=== PATIENT | male | born 1960 | race Caucasian/White ===

== ENCOUNTER 2017-01-29 09:56 | Emergency (ER) | payer BC ==
--- NOTE | 2017-01-29 10:51 | EDM.PDOC ---
ED HPI GENERAL MEDICAL PROBLEM - General Chief Complaint: Back Pain or Injury Stated Complaint: HURT BACK Time Seen by Provider: 01/29/17 10:40 Source of Information: Reports: Patient History Limitations: Reports: No Limitations - History of Present Illness INITIAL COMMENTS - FREE TEXT/NARRATIVE: This 56 yo male patient reports to the ED with increased lower back pain. The patient reports he has a history of lower back pain and was painting last weekend. The patient reports he has noticed increased pain in the lower back throughout the week. The patient has been seen by his Chiropractor on Tuesday, Tuesday and with some symptom relief. The patient report increased pain yesterday that has continued through today. The patient reports he has taken ibuprofen and Aleve today with little to no symptom relief. 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 - Related Data Allergies Allergy/AdvReac Type Severity Reaction Status Date / Time No Known Allergies Allergy Verified 07/01/15 19:00 Home Meds: Home Meds Aspirin [Ecotrin] 81 mg PO DAILY 07/01/15 [History] Metoprolol Succinate [Metoprolol Succinate] 25 mg PO DAILY 07/01/15 [History] Allopurinol [Zyloprim] 100 mg PO DAILY 01/29/17 [History] Past Medical History Cardiovascular History: Reports: Hypertension Social & Family History - Tobacco Use Smoking Status *Q: Never Smoker Second Hand Smoke Exposure: No - Recreational Drug Use Recreational Drug Use: No ED ROS GENERAL - Review of Systems Review Of Systems: ROS reveals no pertinent complaints other than HPI. ED EXAM,LOWER BACK PAIN/INJURY - Physical Exam Exam: See Below Exam Limited By: No Limitations General Appearance: Alert, WD/WN, Moderate Distress Eye Exam: Bilateral Eye: EOMI, Normal Inspection, PERRL Ears: Normal External Exam, Normal Canal, Hearing Grossly Normal, Normal TMs Nose: Normal Inspection, Normal Mucosa, No Blood Throat/Mouth: Normal Inspection, Normal Lips, Normal Teeth, Normal Gums, Normal Oropharynx, Normal Voice, No Airway Compromise Head: Atraumatic, Normocephalic Neck: Normal Inspection, Supple, Non-Tender, Full Range of Motion Respiratory/Chest: No Respiratory Distress, Lungs Clear, Normal Breath Sounds, No Accessory Muscle Use, Chest Non-Tender Cardiovascular: Normal Peripheral Pulses, Regular Rate, Rhythm, No Edema, No Gallop, No JVD, No Murmur, No Rub GI/Abdominal: Normal Bowel Sounds, Soft, Non-Tender, No Organomegaly, No Distention, No Abnormal Bruit, No Mass (Male) Exam: Deferred Rectal (Males) Exam: Deferred Back Exam: Paraspinal Tenderness (left lower back) Extremities: Normal Inspection, Normal Range of Motion, Non-Tender, No Pedal Edema, Normal Capillary Refill Neurological: Alert, Normal Mood/Affect, Normal Dorsiflexion, CN II-XII Intact, Normal Plantar Flexion, Normal Gait, Normal Reflexes, No Motor/Sensory Deficits , Oriented x 3 Psychiatric: Normal Affect, Normal Mood Skin Exam: Warm, Dry, Intact, Normal Color, No Rash Lymphatic: No Adenopathy Departure - Departure Time of Disposition: 10:49 Disposition: Home, Self-Care 01 Condition: Fair Clinical Impression: Low back strain Qualifiers: Encounter type: initial encounter Qualified Code(s): S39.012A - Strain of muscle, fascia and tendon of lower back, initial encounter - Discharge Information Instructions: Back Injury Prevention, [id number], Muscle Strain, [id number] Forms: ED Department Discharge Care Plan Goals: The patient was advised of the examination results during the visit. The patient was discharged with a script for Flexeril (10 mg) #20 to take 1 by mouth at bedtime and [place] (10/325) #6 to take 1 by mouth every 6 hours as needed. If the patient has any additional symptoms or concerns, the patient should follow-up with his primary care facility or return to the emergency department.
[2017-01-29 11:54] VITALS: BP 128/71
== END 2017-01-29 10:57 | disposition home or self-care (01) ==
LOC: DL.ED 09:56
DX: S39.012A Strain of muscle, fascia and tendon of lower back, initial encounter (principal); I10 Essential (primary) hypertension; X58.XXXA Exposure to other specified factors, initial encounter
CPT/HCPCS: 99283

== ENCOUNTER 2017-02-04 22:11 | Emergency (ER) | payer BC ==
[2017-02-04] MEDS ORDERED: Ketorolac 30 MG/ML SDV IM ONE (22:47)
--- NOTE | 2017-02-04 22:52 | EDM.PDOC ---
ED HPI GENERAL MEDICAL PROBLEM - General Chief Complaint: Back Pain or Injury Stated Complaint: SEVER BACK PAIN [phone] Time Seen by Provider: 02/04/17 22:48 Source of Information: Reports: Patient History Limitations: Reports: No Limitations - History of Present Illness INITIAL COMMENTS - FREE TEXT/NARRATIVE: states problem began 2 weeks ago from painting, usually goes to [place] but this time not helping much. was seen here few days ago and given Rx which only help temporarily tonight pain gotten more intense. denies sciatica but there is a spasm by his buttocks region. 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: Flexaril Left Lower Back Pain Score (Numeric/FACES): 9 - Related Data Allergies Allergy/AdvReac Type Severity Reaction Status Date / Time No Known Allergies Allergy Verified 02/04/17 22:25 Home Meds: Home Meds Aspirin [Ecotrin] 81 mg PO DAILY 07/01/15 [History] Metoprolol Succinate [Metoprolol Succinate] 25 mg PO DAILY 07/01/15 [History] Allopurinol [Zyloprim] 100 mg PO DAILY 01/29/17 [History] Cyclobenzaprine [Flexeril] 10 mg PO DAILY 02/04/17 [History] Hydrocodone/Acetaminophen [Hydrocodon-Acetaminophn 10-325] 10 - 325 mg PO QID PRN 02/04/17 [History] Past Medical History HEENT History: Reports: Impaired Vision Cardiovascular History: Reports: Hypertension - Past Surgical History Musculoskeletal Surgical History: Reports: Arthroscopic Knee Social & Family History - Tobacco Use Smoking Status *Q: Never Smoker Second Hand Smoke Exposure: No - Caffeine Use Caffeine Use: Reports: Coffee - Recreational Drug Use Recreational Drug Use: No ED ROS GENERAL - Review of Systems Review Of Systems: ROS reveals no pertinent complaints other than HPI. ED EXAM,LOWER BACK PAIN/INJURY - Physical Exam Exam: See Below Exam Limited By: No Limitations General Appearance: Alert, WD/WN, Mild Distress, Moderate Distress, Other (LBP) Ears: Hearing Grossly Normal Throat/Mouth: Normal Voice, No Airway Compromise Head: Atraumatic Neck: Non-Tender, Full Range of Motion Respiratory/Chest: No Respiratory Distress Cardiovascular: Regular Rate, Rhythm GI/Abdominal: Soft, Non-Tender Back Exam: Muscle Spasm, Paraspinal Tenderness, Other (left LS> ) Neurological: Alert, No Motor/Sensory Deficits, Oriented x 3, Other (gait limited to pain) Psychiatric: Flat Affect Skin Exam: Warm, Dry, Normal Color Lymphatic: No Adenopathy Course - Vital Signs Last Recorded V/S: Last Vital Signs Temp 36.2 C 02/05/17 00:18 Pulse 60 02/05/17 00:18 Resp 18 02/05/17 00:18 BP 142/83 H 02/05/17 00:18 Pulse Ox 98 02/05/17 00:18 - Orders/Labs/Meds Meds: Medications Discontinued Medications Generic Name Dose Route Start Last Admin Trade Name Kiran PRN Reason Stop Dose Admin Butorphanol Tartrate 2 mg 02/05/17 00:06 02/05/17 00:17 Stadol IM 02/05/17 00:07 2 mg ONETIME ONE Administration Ketorolac Tromethamine 30 mg 02/04/17 22:47 02/04/17 23:10 Toradol IM 02/04/17 22:48 30 mg ONETIME ONE Administration Promethazine HCl 25 mg 02/05/17 00:06 02/05/17 00:13 Phenergan IM 02/05/17 00:07 25 mg ONETIME ONE Administration - Re-Assessments/Exams Free Text/Narrative Re-Assessment/Exam: 02/05/17 00:07 re-exam; s/p IM toradol = better somewhat. able to stand better at least but still feels sharp spasms on-off. 02/05/17 00:34 s/p IM stadol + phenergan = much better, able to ambulate well. Departure - Departure Time of Disposition: 00:25 Disposition: Home, Self-Care 01 Condition: Good Clinical Impression: Lumbar paraspinal muscle spasm - Discharge Information Instructions: Muscle Strain, [id number] Referrals: PCP,Not In Area [Primary Care Provider] - Forms: ED Department Discharge Additional Instructions: 1) rest as much as possible 2) try ice or heat to sore areas 3) avoid bending lifting straining 4) follow up at clinic for MRI SCAN 5) recheck if there is any change or concern
[2017-02-05] MEDS ORDERED: Promethazine 25 MG/ML SDV IM ONE (00:06)
[2017-02-05] MEDS ORDERED: Butorphanol 2 MG/ML SDV IM ONE (00:06)
[2017-02-05 00:19] VITALS: BP 142/83
== END 2017-02-05 00:25 | disposition home or self-care (01) ==
LOC: DL.ED 22:11
DX: M62.830 Muscle spasm of back (principal); I10 Essential (primary) hypertension; Z79.82 Long term (current) use of aspirin; Z79.899 Other long term (current) drug therapy
CPT/HCPCS: 96372; 99283; J0595; J1885; J2550

== ENCOUNTER 2017-07-25 10:24 | Emergency (ER) | payer BC ==
[2017-07-25] MEDS ORDERED: Sodium Chloride 0.9% 10 ML Syringe FLUSH PRN (10:27)
[2017-07-25 10:40] VITALS: BP 133/71
--- NOTE | 2017-07-25 10:45 | EDM.PDOC ---
ED HPI GENERAL MEDICAL PROBLEM - General Chief Complaint: Chest Pain Stated Complaint: CHEST PAIN [phone] Time Seen by Provider: 07/25/17 10:35 Source of Information: Reports: Patient, Family, RN, RN Notes Reviewed History Limitations: Reports: No Limitations - History of Present Illness INITIAL COMMENTS - FREE TEXT/NARRATIVE: Pt presents to the ER with c/o left sided chest pain with pain in the left shoulder and left side of the neck. Patient states the pain has been present for about 4 days. He states he was working outside this weekend at the [employer] but does not recall any specific injury. Patient denies fever, chills, N/V/D. He states he has had some SOB, but he feels this is more weight related. Onset: Gradual Onset Date: 07/21/17 Duration: Intermittent Location: Reports: Neck, Chest Quality: Reports: Ache, Dull, Pressure Severity: Mild Improves with: Reports: None - Related Data Allergies Allergy/AdvReac Type Severity Reaction Status Date / Time No Known Allergies Allergy Verified 02/04/17 22:25 Home Meds: Home Meds Aspirin [Ecotrin] 81 mg PO DAILY 07/01/15 [History] Metoprolol Succinate 25 mg PO DAILY 07/01/15 [History] Allopurinol [Zyloprim] 100 mg PO DAILY 01/29/17 [History] Meloxicam 15 mg PO DAILY 07/25/17 [History] Past Medical History HEENT History: Reports: Impaired Vision Cardiovascular History: Reports: Hypertension - Past Surgical History Musculoskeletal Surgical History: Reports: Arthroscopic Knee Social & Family History - Caffeine Use Caffeine Use: Reports: Coffee ED ROS GENERAL - Review of Systems Review Of Systems: ROS reveals no pertinent complaints other than HPI. ED EXAM, GENERAL - Physical Exam Exam: See Below Exam Limited By: No Limitations General Appearance: Alert, WD/WN, No Apparent Distress Eye Exam: Bilateral Eye: EOMI, Normal Inspection Ears: Normal External Exam, Hearing Grossly Normal Nose: Normal Inspection Throat/Mouth: Normal Inspection, Normal Voice, No Airway Compromise Head: Atraumatic, Normocephalic Neck: Normal Inspection, Limited Range of Motion, Tender Lateral (left) Respiratory/Chest: No Respiratory Distress, Lungs Clear, Normal Breath Sounds, No Accessory Muscle Use, Chest Non-Tender Cardiovascular: Normal Peripheral Pulses, Regular Rate, Rhythm, No Edema, No Gallop, No JVD, No Murmur, No Rub Peripheral Pulses: 2+: Radial (L), Radial (R) GI/Abdominal: Normal Bowel Sounds, Soft, Non-Tender, No Organomegaly, No Distention, No Abnormal Bruit, No Mass (Male) Exam: Deferred Rectal (Males) Exam: Deferred Back Exam: Normal Inspection, Full Range of Motion, NT Extremities: Normal Inspection, Normal Range of Motion, Non-Tender, Normal Capillary Refill, No Pedal Edema Neurological: Alert, Oriented, CN II-XII Intact, Normal Cognition, Normal Gait, Normal Reflexes, No Motor/Sensory Deficits Psychiatric: Normal Affect, Normal Mood Skin Exam: Warm, Dry, Intact, Normal Color, No Rash Lymphatic: No Adenopathy EKG INTERPRETATION EKG Date: 07/25/17 Time: 10:27 Rhythm: Other (sinus bradycardia) Rate (Beats/Min): 57 [place]: Normal P-Wave: Present QRS: Normal ST-T: Normal QT: Normal Comparison: NA - No Prior EKG Course - Vital Signs Last Recorded V/S: Last Vital Signs Temp 98.2 F 07/25/17 10:38 Pulse 60 07/25/17 10:38 Resp 20 07/25/17 10:38 BP 133/71 07/25/17 10:38 Pulse Ox 99 07/25/17 10:38 - Orders/Labs/Meds Orders: Active Orders 24 hr Category Date Time Status EKG Documentation Completion [RC] STAT Care 07/25/17 10:27 Active Peripheral IV Care [RC] . DIRECTED Care 07/25/17 10:27 Active Peripheral IV Insertion Adult [OM.PC] Stat Oth 07/25/17 10:27 Ordered Labs: Laboratory Tests 07/25/17 07/25/17 Range/Units 10:39 10:39 WBC 7.2 (5.0-10.0) 10^3/uL RBC 4.92 (4.6-6.2) 10^6/uL Hgb 15.2 (14.0-18.0) g/dL Hct 44.6 (40.0-54.0) % MCV 90.7 (80-100) fL MCH 30.9 (27.0-34.0) pg MCHC 34.1 (33.0-35.0) g/dL Plt Count 197 (150-450) 10^3/uL Neut % (Auto) 60.3 (42.2-75.2) % Lymph % (Auto) 30.5 (20.5-50.1) % [place] % (Auto) 6.7 (2-8) % Eos % (Auto) 2.1 (1.0-3.0) % Baso % (Auto) 0.4 (0.0-1.0) % Sodium 134 L (135-145) mmol/L Potassium 3.7 (3.6-5.0) mmol/L Chloride 104 (101-111) mmol/L Carbon Dioxide 24.0 (21.0-31.0) mmol/L Anion Gap 9.7 BUN 14 (7-18) mg/dL Creatinine 0.9 (0.6-1.3) mg/dL Est Cr Clr Drug Dosing 95.76 mL/min Estimated GFR (MDRD) > 60 BUN/Creatinine Ratio 15.55 Glucose 105 (74-105) mg/dL Calcium 8.9 (8.4-10.2) mg/dl Total Bilirubin 1.1 H (0.2-1.0) mg/dL AST 25 (10-42) IU/L ALT 23 (10-60) IU/L Alkaline Phosphatase 61 (42-121) IU/L Troponin I < 0.02 (0.00-0.02) ng/ml Total Protein 6.8 (6.7-8.2) g/dl Albumin 4.3 (3.2-5.5) g/dl Globulin 2.5 Albumin/Globulin Ratio 1.72 Meds: Medications Discontinued Medications Generic Name Dose Route Start Last Admin Trade Name Freq PRN Reason Stop Dose Admin Sodium Chloride 10 ml 07/25/17 10:27 07/25/17 10:44 Saline Flush FLUSH 10 ml ASDIRECTED PRN Administration Keep Vein Open - Radiology Interpretation Free Text/Narrative:: Chest xray: No acute findings See rad report Departure - Departure Time of Disposition: 11:42 Disposition: Home, Self-Care 01 Condition: Fair Clinical Impression: Muscle strain, Nonspecific chest pain Instructions: Chest Wall Pain, [id number], Nonspecific Chest Pain, Easy-to- Read Forms: ED Department Discharge Additional Instructions: RX Norflex, Diclofenac Consider massage therapy Ice, heat, rest as tolerated Follow up with your primary care facility if no improvement - My Orders Last 24 Hours: My Active Orders 07/25/17 10:27 EKG Documentation Completion [RC] STAT Peripheral IV Care [RC] . DIRECTED Peripheral IV Insertion Adult [OM.PC] Stat - Assessment/Plan Last 24 Hours: My Active Orders 07/25/17 10:27 EKG Documentation Completion [RC] STAT Peripheral IV Care [RC] . DIRECTED Peripheral IV Insertion Adult [OM.PC] Stat
--- NOTE | 2017-07-25 11:24 | CR ---
CLINICAL HISTORY: 56-year-old male with chest pain. INTERPRETATION: Upright AP portable chest film confirms reasonable inspiratory effort and normal card iac silhouette this obese patient. No cephalization of vascular flow, signs of alveolar edema or depe ndent pleural fluid accumulation. No lung mass, hilar lymphadenopathy or focal lobar pneumonia. No atelectasis/collapse. No pneumothorax. CONCLUSION: No acute pulmonary pulmonary abnormality.
[2017-07-25 11:27] LABS: CHLORIDE,CL 104 mmol/L (101-111); SODIUM,NA 134 mmol/L (135-145)
--- NOTE | 2017-07-27 07:25 | EKG ---
07/25/2017- LISSA ROSARIO - FINDINGS: A 12-lead EKG shows sinus bradycardia with heart rate of 57, NC interval of 192. No significant ST elevation or ST depression noted on this 12- lead EKG except for nonspecific ST-T wave changes on leads V2 and V3. [facility] /[id number]
== END 2017-07-25 11:58 | disposition home or self-care (01) ==
LOC: DL.ED 10:24
DX: S16.1XXA Strain of muscle, fascia and tendon at neck level, initial encounter (principal); R07.89 Other chest pain; I10 Essential (primary) hypertension; X58.XXXA Exposure to other specified factors, initial encounter; Y92.828 Other wilderness area as the place of occurrence of the external cause; Z79.82 Long term (current) use of aspirin
CPT/HCPCS: 36415; 71045; 80053; 84484; 85025; 93005; 99285; J7050

== ENCOUNTER 2018-08-20 08:28 | Emergency (ER) | payer BC ==
--- NOTE | 2018-08-20 08:38 | EDM.PDOC ---
ED HPI GENERAL MEDICAL PROBLEM - General Chief Complaint: Respiratory Problem Stated Complaint: BAD COUGH, HARD TIME BREATHING Time Seen by Provider: 08/20/18 08:37 Source of Information: Reports: Patient, Old Records, RN, RN Notes Reviewed History Limitations: Reports: No Limitations - History of Present Illness INITIAL COMMENTS - FREE TEXT/NARRATIVE: Pt presents to ER from home by POV with c/o one weeks duration of cough with occasional green sputum production, nasal drainage, congestions, sore throat, fevers, body aches, and posttussive vomiting. Pt states he has been trying to drink extra fluids, but only urinated once yesterday. He admits to mild shortness of breath, and headache, especially with coughing. Pt denies nausea, abdominal pain, wheezing, hemoptysis, or edema. Pt states he had been [place], and began to get sick towards the end of that trip. Onset: Gradual Duration: Week(s): (1) Location: Reports: Generalized Quality: Reports: Ache Severity: Moderate Improves with: Reports: None Worsens with: Reports: None Associated Symptoms: Reports: No Other Symptoms - Related Data Allergies Allergy/AdvReac Type Severity Reaction Status Date / Time No Known Allergies Allergy Verified 08/20/18 08:42 Home Meds: Home Meds Aspirin [Ecotrin] 81 mg PO DAILY 07/01/15 [History] Metoprolol Succinate 25 mg PO DAILY 07/01/15 [History] Allopurinol [Zyloprim] 100 mg PO DAILY 01/29/17 [History] Meloxicam 15 mg PO DAILY 07/25/17 [History] Past Medical History HEENT History: Reports: Impaired Vision Cardiovascular History: Reports: Hypertension Endocrine/Metabolic History: Reports: Obesity/BMI 30+ - Past Surgical History Musculoskeletal Surgical History: Reports: Arthroscopic Knee Social & Family History - Family History Family Medical History: Noncontributory - Caffeine Use Caffeine Use: Reports: Coffee - Living Situation & Occupation Living situation: Reports: , with Spouse Occupation: Employed ED ROS GENERAL - Review of Systems Review Of Systems: ROS reveals no pertinent complaints other than HPI. ED EXAM, GENERAL - Physical Exam Exam: See Below Exam Limited By: No Limitations General Appearance: Alert, WD/WN, No Apparent Distress, Obese Eye Exam: Bilateral Eye: Normal Inspection Ears: Normal External Exam, Normal Canal, Hearing Grossly Normal, Normal TMs Nose: No Blood, Nasal Drainage (yellowish-green) Throat/Mouth: Normal Lips, Normal Teeth, Normal Gums, Normal Voice, No Airway Compromise, Other (Oropharynx with streaks of erythema and postnasal drainage) Head: Atraumatic, Normocephalic Neck: Normal Inspection, Supple, Non-Tender, Full Range of Motion. No: Lymphadenopathy (L), Lymphadenopathy (R) Respiratory/Chest: No Respiratory Distress, Lungs Clear, No Accessory Muscle Use , Chest Non-Tender, Other (Occasional harsh cough). No: Crackles, Rales, Rhonchi, Wheezing, Stridor Cardiovascular: Regular Rate, Rhythm Back Exam: Normal Inspection Extremities: Normal Inspection. No: Martha's Sign Neurological: Alert, Oriented, CN II-XII Intact, Normal Cognition, Normal Gait, No Motor/Sensory Deficits Psychiatric: Normal Affect, Normal Mood Skin Exam: Warm, Dry, Intact, Normal Color, No Rash Course - Vital Signs Last Recorded V/S: Last Vital Signs Temp 97.3 F 08/20/18 08:42 Pulse 71 08/20/18 08:42 Resp 16 08/20/18 08:42 BP 123/79 08/20/18 08:42 Pulse Ox 97 08/20/18 08:42 - Orders/Labs/Meds Orders: Active Orders 24 hr Category Date Time Status Peripheral IV Care [RC] . DIRECTED Care 08/20/18 08:44 Active Chest 2V [CR] Stat Exams 08/20/18 08:43 Taken CULTURE BLOOD [BC] Stat Lab 08/20/18 09:02 Received CULTURE BLOOD [BC] Stat Lab 08/20/18 09:06 Received CULTURE STREP A CONFIRMATION [RM] Stat Lab 08/20/18 09:04 Results STREP SCRN A RAPID W CULT CONF [RM] Stat Lab 08/20/18 09:04 Results Sodium Chloride 0.9% [Saline Flush] Med 08/20/18 08:43 Active 10 ml FLUSH ASDIRECTED PRN Blood Culture x2 Reflex Set [OM.PC] Stat Oth 08/20/18 08:42 Ordered Peripheral IV Insertion Adult [OM.PC] Stat Oth 08/20/18 08:42 Ordered Medication Orders Sodium Chloride (Saline Flush) 10 ml FLUSH ASDIRECTED PRN PRN Reason: Keep Vein Open Last Admin: 08/20/18 09:04 Dose: 10 ml Labs: Laboratory Tests 08/20/18 08/20/18 08/20/18 Range/Units 09:02 09:02 09:02 WBC 10.8 H (5.0-10.0) 10^3/uL RBC 4.56 L (4.6-6.2) 10^6/uL Hgb 14.0 (14.0-18.0) g/dL Hct 42.1 (40.0-54.0) % MCV 92.3 (80-100) fL MCH 30.7 (27.0-34.0) pg MCHC 33.3 (33.0-35.0) g/dL Plt Count 238 (150-450) 10^3/uL Neut % (Auto) 74.7 (42.2-75.2) % Lymph % (Auto) 15.6 L (20.5-50.1) % [place] % (Auto) 7.6 (2-8) % Eos % (Auto) 1.8 (1.0-3.0) % Baso % (Auto) 0.3 (0.0-1.0) % Sodium 137 (135-145) mmol/L Potassium 3.7 (3.6-5.0) mmol/L Chloride 105 (101-111) mmol/L Carbon Dioxide 22.0 (21.0-31.0) mmol/L Anion Gap 13.7 BUN 16 (7-18) mg/dL Creatinine 1.0 (0.6-1.3) mg/dL Est Cr Clr Drug Dosing TNP Estimated GFR (MDRD) > 60 BUN/Creatinine Ratio 16.00 Glucose 118 H (74-105) mg/dL Lactic Acid 1.2 (0.5-2.2) mmol/L Calcium 8.7 (8.4-10.2) mg/dl Total Bilirubin 1.0 (0.2-1.0) mg/dL AST 22 (10-42) IU/L ALT 28 (10-60) IU/L Alkaline Phosphatase 77 (42-121) IU/L Total Protein 7.1 (6.7-8.2) g/dl Albumin 4.0 (3.2-5.5) g/dl Globulin 3.1 Albumin/Globulin Ratio 1.29 Rapid Strep, Influenza A/B: negative Meds: Medications Generic Name Dose Route Start Last Admin Trade Name Kiran PRN Reason Stop Dose Admin Sodium Chloride 10 ml 08/20/18 08:43 08/20/18 09:04 Saline Flush FLUSH 10 ml ASDIRECTED PRN Administration Keep Vein Open Discontinued Medications Generic Name Dose Route Start Last Admin Trade Name Kiran PRN Reason Stop Dose Admin Sodium Chloride 1,000 mls @ 999 mls/hr 08/20/18 08:44 08/20/18 09:04 Normal Saline IV 08/20/18 09:44 999 mls/hr .BOLUS ONE Administration Ketorolac Tromethamine 30 mg 08/20/18 08:44 08/20/18 09:04 Toradol IVPUSH 08/20/18 08:45 30 mg ONETIME ONE Administration Promethazine HCl/Codeine 10 ml 08/20/18 08:44 08/20/18 09:04 Phenergan With Codeine PO 08/20/18 08:45 10 ml ONETIME ONE Administration - Radiology Interpretation Free Text/Narrative:: Chest XR: no focal consolidations, see Rad. report. Departure - Departure Time of Disposition: 09:48 Disposition: Home, Self-Care 01 Condition: Good Clinical Impression: Viral URI with cough, Acute viral bronchitis - Discharge Information *PRESCRIPTION DRUG MONITORING PROGRAM REVIEWED*: No *COPY OF PRESCRIPTION DRUG MONITORING REPORT IN PATIENT GUEVARA: No Instructions: Viral Respiratory Infection, Squm-Nx-Memb, Acute Bronchitis, Adult, Hyoi-bj-Lmif Forms: ED Department Discharge Additional Instructions: Rx: Promethazine Codeine Syrup *Do not drive while under the influence of this medication. Rx: Prednisone 20mg Frequent saltwater gargles until improved. Use over the counter Coricidin HBP as needed for congestion. Drink plenty of water. Follow up in clinic if not improving in 5 to 7 days. Return to ER if worse at any time. - My Orders Last 24 Hours: My Active Orders 08/20/18 08:42 Blood Culture x2 Reflex Set [OM.PC] Stat Peripheral IV Insertion Adult [OM.PC] Stat 08/20/18 08:43 Chest 2V [CR] Stat Sodium Chloride 0.9% [Saline Flush] 10 ml FLUSH ASDIRECTED PRN 08/20/18 08:44 Peripheral IV Care [RC] . DIRECTED 08/20/18 09:02 CULTURE BLOOD [BC] Stat 08/20/18 09:04 CULTURE STREP A CONFIRMATION [RM] Stat STREP SCRN A RAPID W CULT CONF [] Stat 08/20/18 09:06 CULTURE BLOOD [BC] Stat - Assessment/Plan Last 24 Hours: My Active Orders 08/20/18 08:42 Blood Culture x2 Reflex Set [OM.PC] Stat Peripheral IV Insertion Adult [OM.PC] Stat 08/20/18 08:43 Chest 2V [CR] Stat Sodium Chloride 0.9% [Saline Flush] 10 ml FLUSH ASDIRECTED PRN 08/20/18 08:44 Peripheral IV Care [RC] . DIRECTED 08/20/18 09:02 CULTURE BLOOD [BC] Stat 08/20/18 09:04 CULTURE STREP A CONFIRMATION [RM] Stat STREP SCRN A RAPID W CULT CONF [] Stat 08/20/18 09:06 CULTURE BLOOD [BC] Stat
[2018-08-20] MEDS ORDERED: Sodium Chloride 0.9% 10 ML Syringe FLUSH PRN (08:43)
[2018-08-20] MEDS ORDERED: Codeine/Promethazine 10-6.25 MG/5 ML Syrup 5 ML UD Cup PO ONE (08:44)
[2018-08-20] MEDS ORDERED: Sodium Chloride 0.9% 1,000 ML IV ONE (08:44)
[2018-08-20] MEDS ORDERED: Ketorolac 30 MG/ML SDV IVPUSH ONE (08:44)
[2018-08-20 08:45] VITALS: BP 123/79
[2018-08-20 09:32] LABS: ANION GAP 13.7; CHLORIDE,CL 105 mmol/L (101-111); SODIUM,NA 137 mmol/L (135-145)
== END 2018-08-20 10:15 | disposition home or self-care (01) ==
LOC: DL.ED 08:28
DX: J20.8 Acute bronchitis due to other specified organisms (principal); I10 Essential (primary) hypertension; B97.89 Other viral agents as the cause of diseases classified elsewhere; Z79.82 Long term (current) use of aspirin; Z79.899 Other long term (current) drug therapy
CPT/HCPCS: 36415; 71046; 80053; 83605; 85025; 87040; 87081; 87430; 87804; 96361; 96374; 99283; A9270; J1885; J7030

== ENCOUNTER 2020-04-23 19:36 | Emergency (ER) | payer BC ==
[2020-04-23] MEDS ORDERED: Acyclovir 200 MG Cap PO ONE (20:13)
--- NOTE | 2020-04-23 20:46 | EDM.PDOC ---
ED HPI GENERAL MEDICAL PROBLEM - General Chief Complaint: Headache Stated Complaint: BROKE OUT IN THE MIDDLE OF FOREHEAD AND HEAD ACHE Time Seen by Provider: 04/23/20 19:58 Source of Information: Reports: Patient, RN, RN Notes Reviewed History Limitations: Reports: No Limitations - History of Present Illness INITIAL COMMENTS - FREE TEXT/NARRATIVE: Patient presents to the ED via personal vehicle with his for complaints of painful rash to his right forehead, orthodox, and periorbit. The patient states he first noticed painful burning in this area about four days ago. This morning he noticed redness to his forehead and orthodox and some lesions forming around his right lateral, superior orbit. He states he took Benadryl 25mg which offered him little to no relief of symptoms. The patient does report a history of Varicella in his childhood; he has not received a shingles vaccine. He does report receiving the first dose of the COVID vaccine six days ago. He denies f ever, shaking chills, pruritus, cough, sore throat, vision changes, or pain of the eye. Right Temporal Pain Score (Numeric/FACES): 4 - Related Data Allergies Allergy/AdvReac Type Severity Reaction Status Date / Time No Known Allergies Allergy Verified 04/23/20 20:04 Home Meds: Home Meds Aspirin [Ecotrin] 81 mg PO DAILY 07/01/15 [History] Metoprolol Succinate 25 mg PO DAILY 07/01/15 [History] Allopurinol [Zyloprim] 100 mg PO DAILY 01/29/17 [History] Meloxicam 15 mg PO DAILY 07/25/17 [History] Past Medical History HEENT History: Reports: Impaired Vision Cardiovascular History: Reports: High Cholesterol, Hypertension Musculoskeletal History: Reports: Arthritis Endocrine/Metabolic History: Reports: Obesity/BMI 30+ - Infectious Disease History Infectious Disease History: Reports: Chicken Pox - Past Surgical History Musculoskeletal Surgical History: Reports: Arthroscopic Knee Social & Family History - Family History Family Medical History: No Pertinent Family History - Tobacco Use Tobacco Use Status *Q: Never Tobacco User Second Hand Smoke Exposure: No - Caffeine Use Caffeine Use: Reports: Coffee - Alcohol Use Date of Last Drink: 04/23/20 - Recreational Drug Use Recreational Drug Use: No - Living Situation & Occupation Living situation: Reports: , with Spouse Occupation: Employed ED ROS ENT - Review of Systems Review Of Systems: Comprehensive ROS is negative, except as noted in HPI. ED EXAM, ENT - Physical Exam Exam: See Below Exam Limited By: No Limitations General Appearance: Alert, No Apparent Distress Eye Exam: Right Eye: Periorbital Changes (Swelling, erythema, and vesicular lesions to superior, lateral orbit), Bilateral Eye: EOMI, PERRL (3mm) Ears: Normal External Exam, Normal Canal, Hearing Grossly Normal, Normal TMs. No: Mastoid Swelling, Mastoid Tenderness Nose: Normal Inspection, Normal Mucousa, No Blood, Other (No lesions to nose) Mouth/Throat: Normal Inspection, Normal Oropharynx. No: Hoarse Voice, Muffled Voice, Pharyngeal Erythema, Tonsillar Erythema Head: Atraumatic, Normocephalic, Scalp Tenderness (To right frontal scalp), Facial Tenderness (To right forehead and right orthodox) Neck: Normal Inspection, Supple, Non-Tender, Full Range of Motion. No: Lymphadenopathy (L), Lymphadenopathy (R) Respiratory/Chest: No Respiratory Distress, Lungs Clear, Normal Breath Sounds, No Accessory Muscle Use, Chest Non-Tender Cardiovascular: Normal Peripheral Pulses, Regular Rate, Rhythm, No Edema, No Gallop, No JVD, No Murmur, No Rub Back: Normal Inspection, Full Range of Motion Extremities: Normal Range of Motion Neurological: Alert, Oriented, CN II-XII Intact, Normal Cognition, Normal Gait, Normal Reflexes, No Motor/Sensory Deficits Psychiatric: Normal Affect, Normal Mood Skin: Warm, Dry, Erythema (To right orthodox and right forehead), Zoster-Like Rash (To right superior/lateral orbit). No: Ecchymosis, Jaundice, Mottled, Pallor, Petechiae Course - Vital Signs Last Recorded V/S: Last Vital Signs Temp 96.5 F L 04/23/20 21:01 Pulse 70 04/23/20 21:01 Resp 18 04/23/20 21:01 BP 128/81 04/23/20 21:01 Pulse Ox 97 04/23/20 21:01 - Orders/Labs/Meds Orders: Active Orders 24 hr Category Date Time Status Orbit Sella PF IAC w Cont [CT] Urgent Exams 04/23/20 19:59 Stop Req Labs: Laboratory Tests 04/23/20 Range/Units 20:25 Sodium 139 (136-145) mmol/L Potassium 3.6 (3.5-5.1) mmol/L Chloride 102 (98-107) mmol/L Carbon Dioxide 25 (21-32) mmol/L Anion Gap 15.6 H (7-13) mEq/L BUN 18 (7-18) mg/dL Creatinine 0.91 (0.70-1.30) mg/dL Est Cr Clr Drug Dosing 94.24 mL/min Estimated GFR (MDRD) > 60 Glucose 128 H (74-99) mg/dL Calcium 8.7 (8.5-10.1) mg/dL Meds: Medications Discontinued Medications Generic Name Dose Route Start Last Admin Trade Name Freq PRN Reason Stop Dose Admin Acyclovir 800 mg 04/23/20 20:13 04/23/20 20:30 Zovirax PO 04/23/20 20:14 800 mg ONETIME ONE Administration - Re-Assessments/Exams Free Text/Narrative Re-Assessment/Exam: 04/23/20 Zoster-like rash noted to right forehead, lateral eye orbit, and right orthodox. Patient given Acyclovir 800mg as Valacyclovir not available in current formulary. [facility] originally ordered to access kidney function for CT with contrast. Case discussed with Dr. Borjas, soda fountain clerk at [facility] in [place], who states patient presentation does not warrant CT at this time. Should patient develop eye pain, vision changes, lesions that extend down the nose, or lesions that overtake the eyelid, plan for CT could change. Dr. Borjas states solo treatment with Acyclovir should be appropriate with no need for ophthalmology consult unless the aforementioned symptoms develop. Dr. Borjas states he is happy to see the patient should he want to be evaluated; he will place the patient "on his list" just in case. Discussed plan of care and option for ophthalmology referral should the patient wish or if red flag signs and symptoms develop. Patient and verbalized understanding and agreement with the plan of care. Departure - Departure Time of Disposition: 21:01 Disposition: Home, Self-Care 01 Condition: Good Clinical Impression: Zoster Qualifiers: Herpes zoster complications: without complications Qualified Code(s): B02.9 - Zoster without complications - Discharge Information *PRESCRIPTION DRUG MONITORING PROGRAM REVIEWED*: Not Applicable *COPY OF PRESCRIPTION DRUG MONITORING REPORT IN PATIENT GUEVARA: Not Applicable Instructions: Shingles, [id number] Forms: ED Department Discharge Additional Instructions: Rx: Acyclovir 1.) Take all of your medication, as prescribed, until it is gone. 2.) You may take acetaminophen (Tylenol) 1000mg every six hours, as pain persists. You may also take ibuprofen (Advil/Motrin) 400mg every six hours, as pain persists. You may stagger these medications so you are taking a dose every three hours. 3.) You may alternate cold and warm compresses to lesions as they erupt to help with pain. 4.) Follow up with Dr. Borjas at [facility] should you develop lesions that extend down your nose, eye pain, vision changes, or lesions/swelling that covers to eyelid; or should you feel the need to (he knows about your case). Follow up in the emergency department after hours should you note these symptoms. Sepsis Event Note (ED) - Evaluation Sepsis Screening Result: No Definite Risk - Focused Exam Vital Signs: Vital Signs Temp Pulse Resp BP Pulse Ox 04/23/20 21:01 96.5 F L 70 18 128/81 97 04/23/20 19:41 96.4 F L 64 17 133/71 96 - My Orders Last 24 Hours: My Active Orders 04/23/20 19:59 Orbit Sella PF IAC w Cont [CT] Urgent - Assessment/Plan Last 24 Hours: My Active Orders 04/23/20 19:59 Orbit Sella PF IAC w Cont [CT] Urgent
[2020-04-23 20:48] LABS: ANION GAP 15.6 mEq/L (7-13); CHLORIDE,CL 102 mmol/L (98-107); SODIUM,NA 139 mmol/L (136-145)
[2020-04-23 21:02] VITALS: BP 128/81; PULSE 70
== END 2020-04-23 21:13 | disposition home or self-care (01) ==
LOC: DL.ED 19:36
DX: B02.9 Zoster without complications (principal); I10 Essential (primary) hypertension; M19.90 Unspecified osteoarthritis, unspecified site; E66.9 Obesity, unspecified; Z68.41 Body mass index [BMI] 40.0-44.9, adult; Z79.82 Long term (current) use of aspirin; Z79.899 Other long term (current) drug therapy
CPT/HCPCS: 36415; 80048; 99283; A9270